=== PATIENT | female | born 1935 | race Caucasian/White ===

== ENCOUNTER 2019-01-02 12:28 | Day surgery (SDC) | payer OTHER, MEDICARE ==
[2018-12-25 12:18] VITALS: BMI 29.6
--- NOTE | 2019-01-02 07:57 | HP ---
Satellite [facility] - Chief Complaint Chief Complaint: left knee pain - Past Medical History Allergies/Adverse Reactions: Allergies Allergy/AdvReac Type Severity Reaction Status Date / Time shellfish derived Allergy Severe Itching Verified 12/25/18 12:03 No Known Drug Allergies Allergy Verified 12/25/18 12:18 - Current Medications Current Medications: Home Medications Medication Instructions Recorded Amiodarone HCl 200 mg PO DAILY 12/25/18 Apixaban [Eliquis] 5 mg PO BID 12/25/18 Losartan Potassium 200 mg PO DAILY 12/25/18 Satellite Physical Exam - Physical Examination General Appearance: Well Nourished, Well Developed, Alert & Oriented x3 ENT: Clear Lung: Normal air movement Heart: Regular rate & rhythm Extremities: Other (left knee- +Swelling, + ttp medially, decr rom, nvi xrays show grade 4 medial djd) Neurological: Intact, Alert, Oriented Satellite Impression/Plan - Impression/Plan Impression: left knee medial djd Operative Procedure: left medial corbin ukr Date to be Performed: 01/02/19
[~2019-01-02 12:28] MED LIST: CEFAZOLIN 1 GM/D5W 1 GRAM/50 ML BAG IVPB ONE; CELECOXIB 200 MG CAPSULE PO ONE; GABAPENTIN 300 MG CAPSULE (FP) PO ONE; TRANEXAMIC ACID 1000 MG/10 ML VIAL IVPUSH ONE
[2019-01-02] MEDS ORDERED: MAG HYDROX/AL HYDROX/SIMETH 30 ML UNIT-DOSE CUP PO PRN (13:09)
[2019-01-02] MEDS ORDERED: ONDANSETRON 4 MG/2 ML VIAL IVPUSH PRN ×2 (13:09→16:44)
[2019-01-02] MEDS ORDERED: LACTATED RINGERS SOLUTION 1,000 ML IV SCH ×2 (13:15→16:45)
[2019-01-02] MEDS ORDERED: MIDAZOLAM HCL 2 MG/2 ML SINGLE DOSE VIAL ONE (14:04)
[2019-01-02] MEDS ORDERED: BUPIVACAINE LIPOSOME/PF (EXPAREL) 266 MG/20 ML VIAL ONE (14:04)
[2019-01-02] MEDS ORDERED: THROMBIN (RECOMBINANT) 5,000 UNIT VIAL TP ONE (14:21)
[2019-01-02] MEDS ORDERED: ceFAZolin SODIUM 1 GM VIAL ONE ×2 (14:21→14:55)
[2019-01-02] MEDS ORDERED: SODIUM CHLORIDE 0.9% P/F 10 ML VIAL IJ ONE (14:22)
[2019-01-02] MEDS ORDERED: GELATIN, ABSORBABLE 100 EACH SPONGE TP ONE ×3 (14:22→16:00)
[2019-01-02] MEDS ORDERED: ROPIVICAINE 0.2%/MORPH PF/KETOROLAC - 51ML DISP.SYRINGE IA ONE ×2 (14:37→15:21)
[2019-01-02] MEDS ORDERED: ePHEDrine SULFATE 50 MG/1 ML AMPULE ONE (15:15)
[2019-01-02] MEDS ORDERED: THROMBIN (BOVINE) 5,000 UNIT VIAL TP ONE ×2 (15:20→16:00)
[2019-01-02] MEDS ORDERED: TRANEXAMIC ACID 1000 MG/10 ML VIAL ONE (16:03)
--- NOTE | 2019-01-02 16:33 | OP ---
Operative Note - Note: Operative Date: 01/02/19 (aníbal) Pre-Operative Diagnosis: left knee medial djd Operation: left medial corbin ukr Post-Operative Diagnosis: Same as Pre-op Surgeon: Christiano Chan Information And Data Architect Analyst: Mustapha Obando Anesthesiologist/CARTON GLUING MACHINE OPERATOR: Patel Purcell Anesthesia: Spinal, Local Specimens Removed: bone fragments Estimated Blood Loss (mls): 150 Operative Report Dictated: Yes
[2019-01-02] MEDS ORDERED: oxyCODONE HCL 5 MG TABLET PO PRN (16:44)
[2019-01-02] MEDS ORDERED: ACETAMINOPHEN 325 MG TABLET (FP) ONE (17:09)
[2019-01-02] MEDS ORDERED: ONDANSETRON 4 MG/2 ML VIAL ONE (17:10)
[2019-01-02] MEDS: ACETAMINOPHEN 325 MG TABLET (FP) PO SCH ×2 (18:35→23:33)
--- NOTE | 2019-01-02 19:06 | SPEC ---
DATE OF OPERATION: 01/02/2019 LOCATION: [facility] PREOPERATIVE DIAGNOSIS: Left knee medial compartment osteoarthritis. POSTOPERATIVE DIAGNOSIS: Left knee medial compartment osteoarthritis. OPERATION: Left knee medial Makoplasty/robotically-assisted partial knee replacement. SURGEON: Shaneka Varela MD CHAINSTITCH ELASTIC ATTACHER: Adebayo Sarmiento MD SECOND CHAINSTITCH ELASTIC ATTACHER: RAJIV Menendez ANESTHESIA: Spinal anesthesia and sedation. ANESTHESIOLOGIST: Patel Purcell CRNA DRAINS: None. COMPLICATIONS: None. ESTIMATED BLOOD LOSS: Minimal. BLOOD GIVEN: None. FLUID REPLACEMENT: 1000 mL PlasmaLyte. SPECIMEN: Bone and cartilage, left knee. INDICATIONS: This patient is an 83-year-old female with a preoperative diagnosis of left knee medial compartment osteoarthritis. After understanding the potential risks, complications, alternatives, and benefits of surgery versus nonsurgical treatment, the patient elected to undergo this procedure. The patient understands that there is a lifelong risk of infection. Patient may need a revision surgery which would require removal of the implant. Patient may require conversion to a total knee replacement. Patient may have some continued pain from osteoarthritis in either the patellofemoral joint or the lateral compartment. DESCRIPTION OF PROCEDURE: The patient was brought into the operating room, peripheral IV placed and IV sedation given. One gram of IV Ancef was given. Spinal anesthesia was induced. Patient was placed into the supine position. Ample Webril was placed on the left upper thigh. Tourniquet was applied. The left lower extremity was prepped and draped in the usual sterile fashion. The preoperative CT scan, the computer, and the robot were brought into position. The two femoral Oscar pins were placed by making the appropriate measurement and then using a No. 15 scalpel blade to cut through the skin and a hemostat to dissect down to the anterior aspect of the femur and the anterior aspect of the tibia. The tibia and femoral arrays were placed. A 3.5-inch incision was made along the medial aspect of the knee joint, patella and proximal tibia. Subcutaneous hemostasis was achieved with the Bovie cautery. Dissection was done with the Bovie down to the knee retinaculum which was incised, the thick synovial fluid evacuated. There were some osteophytes on the medial aspect of the patella which were debrided with the rongeur. After the patelloplasty, some small bleeders were cauterized and Hohmann retractors were placed to retract the medial soft tissues on the proximal aspect of the tibia and some mild amount of periosteal dissection was performed. Once this was done, exposing the proximal and medial tibia and the proximal and medial femur, the two positioning buttons were placed. Next, using the green sensor, we began positioning with both the medial and lateral malleolus and then putting the knee through progressively larger circles in a clockwise direction, gaining location data with the femoral and tibial array. Next, we did a medial meniscectomy and correlated the femoral and tibial positions with the positioner and the buttons. Next, we registered 40 points of position with a combination of the handheld registration device and the arrays in the computer. Once this was done, we put the knee through a range of motion. The patient had a small varus forming and a small flexion contraction both of which were corrected, taking multiple measurements including at 0 degrees, 30 degrees, 60 degrees, 90 degrees and 120 degrees. Once this was done and we evaluated the flexion and extension tension graphs and it was seen to be quite good and I was quite happy with the tension throughout the full range of motion. No other adjustments were needed to be made. This was a size No. 5 medial femur and size No. 5 medial tibial component with an 8mm polyethylene tray. We locked in the prosthesis size combination, and began our resection. The robot was brought into place. Registration was done. Using the standard Makoplasty technique, I was able to use a round tyler to take out the appropriate amount of bone from the distal femur and the proximal tibia. The area was copiously irrigated and washed out. A rongeur was used to take away some marginal osteophytes and overhanging cartilage. It all looked quite good; it was quite smooth. I saw no reason for any additional resection. We then put the leg up, applied the tourniquet to 300 mmHg. We used Thrombin-soaked Gelfoam on the bony beds for hemostasis and then a dry lap pad. We mixed one bag of Simplex cement. We opened the real prosthesis, which would be the Makoplasty medial femur No. 5 and the medial Makoplasty tibial No. 5. These were precoated on their undersurface with cement. The Thrombin-soaked Gelfoam was removed, the area copiously irrigated and washed out, dried, and cement placed into the holes and onto the bone, first of the femur. The femoral component was applied, tapped into place. The excess cement was removed and then the same procedure for the tibia. Once the excess cement was all removed, I put in a No. 8 trial polyethylene tray and put the knee into extension for more compression. I was able to put the knee through a full range of motion, achieving full extension, full flexion well past 100 degrees overall. I was quite happy with the position of the prosthesis. We let it dry. Excess cement was removed. Again, it was tested, seen to be quite good and therefore, a real polyethylene tray was placed in the knee. Once this was done, the area was copiously irrigated and washed out again. A Hemovac drain was placed. The deep knee retinaculum was repaired with No. 1 Tycron suture, 2-0 Vicryl sutures to close the deep dermal layer. Final skin reapproximation was done with a running subcuticular 3-0 V-Loc suture. 3-0 nylon was used to close the proximal and distal holes where the Steinmann pins were for the femoral and tibial arrays. The area was copiously irrigated and washed out, covered in Xeroform. A cocktail of Morphine and Bupivacaine was injected in and around the soft tissue of the knee. The main incision was covered with Steri strips as well. The area was also covered with 4 x 4 gauze, ample Webril, ABDs, and Pacheco bandages. The tourniquet was taken down after only being up for 50 minutes. There were no complications during the case. The patient tolerated the procedure quite well and was brought to the regular recovery room in stable condition.. Everything was quite straightforward. SHANEKA VARELA M.D. [id number]
[2019-01-02] MEDS: CEFAZOLIN 1 GM/D5W 1 GRAM/50 ML BAG IVPB SCH (21:09)
[2019-01-02] MEDS: GABAPENTIN 300 MG CAPSULE (FP) PO SCH (21:09)
[2019-01-02] MEDS: SENNOSIDES/DOCUSATE COMBO (SENNA PLUS) TABLET (UD) PO SCH (21:09)
[2019-01-02] MEDS: oxyCODONE HCL 5 MG TABLET PO PRN (23:34)
[2019-01-03] MEDS: ACETAMINOPHEN 325 MG TABLET (FP) PO SCH ×2 (06:13→09:45)
[2019-01-03] MEDS: oxyCODONE HCL 5 MG TABLET PO PRN (06:17)
[2019-01-03] MEDS: CEFAZOLIN 1 GM/D5W 1 GRAM/50 ML BAG IVPB SCH (06:18)
[2019-01-03 06:40] VITALS: TEMP 97.7
--- NOTE | 2019-01-03 08:47 | PN ---
Progress Note (short form) - Note Progress Note: Pt is POD#1 s/p left medial knee replacement under block/spinal anesthesia. Pain is under good control, no anesthetic issues/complications noted. PT is scheduled to ambulate with pt this am
[2019-01-03 09:41] VITALS: BP 116/40; PULSE 76
[2019-01-03] MEDS: GABAPENTIN 300 MG CAPSULE (FP) PO SCH (09:44)
[2019-01-03] MEDS: SENNOSIDES/DOCUSATE COMBO (SENNA PLUS) TABLET (UD) PO SCH (09:45)
[2019-01-03] MEDS ORDERED: MULTIVITAMINS (DAILY MVI) TABLET (FP) PO SCH (10:00)
[2019-01-03] MEDS ORDERED: LOSARTAN POTASSIUM 200 MG PO SCH (10:00)
[2019-01-03] MEDS ORDERED: AMIODARONE HCL 200 MG TABLET (FP) PO SCH (10:00)
[2019-01-03] MEDS ORDERED: PANTOPRAZOLE 40 MG TABLET (FP) PO SCH (10:00)
[2019-01-03] MEDS ORDERED: LOSARTAN POTASSIUM 25 MG TABLET PO SCH (10:00)
--- NOTE | 2019-01-03 11:55 | PN ---
Progress Note (short form) - Note Progress Note: Ortho Pt seen and examined s/p left medial corbin ukr pod #1 Selected Entries 01/03/19 09:41 Temperature 97.7 F Pulse Rate 76 Respiratory 19 Rate Blood Pressure 116/40 L dressing with slight saturation but not to borders, rom 0-90 calf soft, nt, nvi a/p PT dvt ppx pain control d/c home today f/u in 1 week
--- NOTE | 2019-01-03 11:56 | DS ---
Physical Examination Vital Signs: Vital Signs Temperature 97.7 F 01/03/19 09:41 Pulse Rate 76 01/03/19 09:41 Respiratory Rate 19 01/03/19 09:41 Blood Pressure 116/40 L 01/03/19 09:41 O2 Sat by Pulse Oximetry (%) 100 01/03/19 06:39 Discharge Summary Reason For Visit: OSTEOARTHRITIS Procedures: Principal: left medial corbin ukr Hospital Course: admitted for elective left medial corbin ukr, uneventful post-op, stable for d/c Condition: Good - Instructions Diet, Activity, Other Instructions: Post-op Instructions-Partial Knee Replacement Call the office for a follow-up appointment in 1 week - [phone] Restart Eliquis. Pain medication was sent into your pharmacy. Apply Graduated Compression Stockings (TEDs) to both lower extremities- remove daily for hygiene ONLY Apply Sequential Compression Device (SCDs) to both Lower extremities remove for PT and hygiene ONLY Apply cold packs to affected area for 15 minutes every 2 hours. Physical Therapist will come to your home for the first 5 days. You will be set up with outpatient PT at your first post-operative visit. Patient may ambulate as tolerated-encourage self care (at least every 2-3 hours while awake) with walker or cane Maintain Aquacel (waterproof) dressing to operative wound (will be removed by surgeon at first office visit) Shower with Aquacel dressing in place-if Aquacel integrity compromised, remove and apply dry sterile dressing and notify Orthopedist. DO NOT SHOWER unless Orthopedists approves without Aquacel dressing CONTACT THE OFFICE FOR ANY CHANGE IN YOUR CONDITION (for example-fever greater than 102 degrees, excessive bleeding from operative site, purulent drainage, severe swelling or pain) GO TO THE EMERGENCY ROOM IF THERE IS A MEDICAL EMERGENCY Knee Precautions: * Keep a rolled towel under affected heel while in bed or chair (to keep knee in extension) * Keep affected leg elevated except during mealtimes * DO NOT PLACE PILLOW UNDER AFFECTED KNEE * If you have any questions, please do not hesitate to call the office - . Referrals: Christiano Chan MD [Staff Physician] - Disposition: VNS/HOME HEALTH CARE - Home Medications Comprehensive Discharge Medication List: Ambulatory Orders Amiodarone HCl 200 mg PO DAILY 12/25/18 Apixaban [Eliquis] 5 mg PO BID 12/25/18 Losartan Potassium 200 mg PO DAILY 12/25/18 Oxycodone HCl/Acetaminophen [Percocet 5-325 mg Tablet -] 1 - 2 tab PO Q6H #50 tab MDD 8 01/02/19
[2019-01-03] MEDS ORDERED: APIXABAN 5 MG TABLET PO SCH (22:00)
== END 2019-01-03 12:31 | disposition home health service (06) ==
LOC: FASUSAT 12:28 → FM/S 17:35 → FASUSAT 01-03 12:31
PROVIDERS: ATTEND Orthopaedic Surgery
PROC: 8E0YXBZ Computer Assisted Procedure of Lower Extremity (ICD-10-PCS; 2019-01-02)
PROC: 8E0Y0CZ Robotic Assisted Procedure of Lower Extremity, Open Approach (ICD-10-PCS; 2019-01-02)
PROC: 0SRD0L9 Replacement of Left Knee Joint with Medial Unicondylar Synthetic Substitute, Cemented, Open Approach (ICD-10-PCS; principal; 2019-01-02 15:05)
DX: M17.12 Unilateral primary osteoarthritis, left knee (principal)
CPT/HCPCS: 20985; 27446; C1776; S2900; 73560-TC-LT-FY; 94760; 97116-GP; 97163-GP

== ENCOUNTER 2023-04-12 07:20 | Day surgery (SDC) | payer OTHER, MEDICARE ==
[2023-04-06 14:57] VITALS: BMI 24.7
[2023-04-12] MEDS ORDERED: VANCOMYCIN 1,000 MG VIAL (RESTRICTED TO ID ONLY) ONE (07:44)
[2023-04-12] MEDS ORDERED: THROMBIN (BOVINE) 5,000 UNIT VIAL TP ONE (07:44)
[2023-04-12] MEDS ORDERED: ceFAZolin SODIUM 1 GM VIAL ONE ×3 (07:44→11:30)
[2023-04-12] MEDS ORDERED: ACETAMINOPHEN 1000 MG/100 ML BAG IVPB ONE (07:45)
[2023-04-12] MEDS ORDERED: CELECOXIB 200 MG CAPSULE PO ONE (07:53)
[2023-04-12] MEDS ORDERED: TRANEXAMIC ACID 1000 MG/10 ML VIAL IVPUSH ONE (07:53)
[2023-04-12] MEDS ORDERED: CEFAZOLIN 2 GM in DEXTROSE 5%-WATER - 50 ML IVPB ONE (08:30)
[2023-04-12] MEDS ORDERED: BUPIVACAINE LIPOSOME/PF (EXPAREL) 266 MG/20 ML VIAL ONE (08:31)
[2023-04-12] MEDS ORDERED: MIDAZOLAM HCL 2 MG/2 ML SINGLE DOSE VIAL ONE ×2 (08:31→10:03)
[2023-04-12] MEDS ORDERED: BUPIVACAINE HCL/PF 0.5% (5MG/ML) 10 ML VIAL ONE (08:32)
[2023-04-12] MEDS ORDERED: PROPOFOL 20 ML ONE (08:53)
[2023-04-12] MEDS ORDERED: ONDANSETRON 4 MG/2 ML VIAL IVPUSH PRN (09:30)
[2023-04-12] MEDS ORDERED: oxyCODONE HCL 5 MG TABLET PO PRN ×2 (09:30)
[2023-04-12] MEDS ORDERED: BUPIVICAINE 0.25%/MORPH PF/KETOROLAC - 51ML DISP.SYRINGE IA ONE ×4 (09:30→11:29)
[2023-04-12] MEDS ORDERED: PATIENT'S OWN MEDICATION (NON-FORMULARY) (Multivitamin [One-Daily Multi-Vitamin] 1 EACH Ta PO SCH (10:00)
[2023-04-12] MEDS ORDERED: TRANEXAMIC ACID 1000 MG/10 ML VIAL ONE (10:19)
[2023-04-12] MEDS ORDERED: ONDANSETRON 4 MG/2 ML VIAL ONE (10:41)
[2023-04-12] MEDS ORDERED: DEXAMETHASONE SOD PHOSPHATE 4 MG/1 ML VIAL ONE (10:41)
[2023-04-12] MEDS: KETOROLAC TROMETHAMINE 30 MG/1 ML VIAL IVPUSH SCH ×2 (12:22→17:51)
[2023-04-12] MEDS ORDERED: ACETAMINOPHEN INJECTION 100 ML IVPB ONE (12:23)
[2023-04-12] MEDS: LACTATED RINGERS SOLUTION 1,000 ML IV SCH (14:20)
[2023-04-12] MEDS: SENNOSIDES/DOCUSATE COMBO (SENNA PLUS) TABLET (UD) PO SCH ×2 (14:21→23:00)
[2023-04-12] MEDS: oxyCODONE HCL 10 MG SUSTAINED ACTING TABLET PO SCH ×2 (14:21→23:00)
[2023-04-12] MEDS: MULTIVITAMINS (DAILY MVI) TABLET (FP) PO SCH (14:21)
[2023-04-12] MEDS: PANTOPRAZOLE 40 MG TABLET PO SCH (14:21)
[2023-04-12] MEDS: CEFAZOLIN SODIUM 2 GM in DEXTROSE 5%-WATER 100 ML IVPB SCH (17:52)
[2023-04-12 18:53] VITALS: RESP 18
[2023-04-12] MEDS: ACETAMINOPHEN 500 MG TABLET (FP) PO SCH (19:45)
[2023-04-13] MEDS: CEFAZOLIN SODIUM 2 GM in DEXTROSE 5%-WATER 100 ML IVPB SCH (02:00)
[2023-04-13] MEDS: oxyCODONE HCL 10 MG SUSTAINED ACTING TABLET PO SCH ×2 (03:51→09:17)
[2023-04-13] MEDS: ACETAMINOPHEN 500 MG TABLET (FP) PO SCH ×2 (05:43→08:15)
[2023-04-13 08:43] VITALS: PULSE 88; TEMP 98.1
[2023-04-13 09:16] VITALS: BP 140/46
[2023-04-13] MEDS: PANTOPRAZOLE 40 MG TABLET PO SCH (09:16)
[2023-04-13] MEDS: SENNOSIDES/DOCUSATE COMBO (SENNA PLUS) TABLET (UD) PO SCH (09:16)
[2023-04-13] MEDS: MULTIVITAMINS (DAILY MVI) TABLET (FP) PO SCH (09:16)
[2023-04-13] MEDS: LACTATED RINGERS SOLUTION 1,000 ML IV SCH (09:19)
[2023-04-13] MEDS ORDERED: AMIODARONE HCL 200 MG TABLET PO SCH (10:00)
[2023-04-13] MEDS ORDERED: APIXABAN 5 MG TABLET PO SCH (10:00)
== END 2023-04-13 12:13 | disposition home health service (06) ==
LOC: FASUSAT 07:20 → FM/S 13:13 → FASUSAT 04-13 12:13
PROVIDERS: ATTEND Orthopaedic Surgery
PROC: 8E0Y0CZ Robotic Assisted Procedure of Lower Extremity, Open Approach (ICD-10-PCS; 2023-04-12)
PROC: 0SRD0J9 Replacement of Left Knee Joint with Synthetic Substitute, Cemented, Open Approach (ICD-10-PCS; principal; 2023-04-12 10:31)
DX: M17.12 Unilateral primary osteoarthritis, left knee (principal)
CPT/HCPCS: 20985; 27447; C1776; S2900; 73560-TC-RT-FY; 94760; 97010-GP; 97116-GP; 97162-GP; C1889

== ENCOUNTER 2024-01-27 04:17 | Day surgery (SDC) | payer OTHER, MEDICARE ==
[2024-01-19 13:47] VITALS: BMI 24.7
[2024-01-27] MEDS: LIDOCAINE HCL 1% PRESERVATIVE FREE - 30ML VIAL IJ ONE ×2 (09:34→09:55)
[2024-01-27] MEDS ORDERED: ACETAMINOPHEN 500 MG TABLET (FP) PO PRN (10:40)
[2024-01-27 10:57] VITALS: BP 141/70; PULSE 78; RESP 20; TEMP 98
== END 2024-01-27 11:20 | disposition home or self-care (01) ==
LOC: JASU-SURG 04:17
PROVIDERS: ATTEND Pain Medicine Pain Medicine
PROC: 01HY3MZ Insertion of Neurostimulator Lead into Peripheral Nerve, Percutaneous Approach (ICD-10-PCS; principal; 2024-01-27 09:30)
DX: G89.4 Chronic pain syndrome (principal); M54.9 Dorsalgia, unspecified
CPT/HCPCS: 64555; C1778; 76000-TC-FY